=== PATIENT | female | born 1940 | race Caucasian/White ===

== ENCOUNTER 2017-03-17 00:50 | Emergency (ER) | payer MEDICARE, OTHER ==
[2017-03-17 00:51] VITALS: BMI 29.6
[2017-03-17 01:55] VITALS: RESP 18
[2017-03-17 02:44] VITALS: BP 131/52; PULSE 62; TEMP 98; O2SAT 98
--- NOTE | 2017-03-17 02:53 | C.PDOC ---
History Of Present Illness 76 yo female was slicing food with a knife and sustained laceration to left index finger at edge of nailfold. Patient is on coumadin s/p cardiac surgery. Bleeding persists. Time Seen by Provider: 03/17/17 01:19 Chief Complaint (Nursing): Abnormal Skin Integrity Onset/Duration Of Symptoms: Mins Past Medical History Vital Signs: Last Vital Signs Temp 98 F 03/17/17 02:43 Pulse 62 03/17/17 02:43 Resp 18 03/17/17 02:43 BP 131/52 L 03/17/17 02:43 Pulse Ox 98 03/17/17 02:43 - Medical History PMH: CAD, Cardia Arrhythmia (AFIB), HTN, Hyperlipidemia, Hypothyroidism Denies: Depression Other Surgeries: cardiac surgery - [facility] Procedures DX ULTRASOUND-HEART (02/04/98) INJECT/INFUSE ELECTROLYT (09/10/13) INJECT/INFUSE NEC (07/30/12) Family History: States: No Known Family Hx - Social History Hx Tobacco Use: No Hx Alcohol Use: No Hx Substance Use: No - Immunization History Hx Tetanus Toxoid Vaccination: Yes Hx Influenza Vaccination: Yes Hx Pneumococcal Vaccination: Yes Review Of Systems Constitutional: Negative for: Fever Cardiovascular: Negative for: Chest Pain Respiratory: Negative for: Shortness of Breath Skin: Negative for: Rash, Lesions Neurological: Negative for: Weakness, Numbness, Confusion Psych: Negative for: Anxiety Physical Exam - Physical Exam Appears: Well, Non-toxic Chest: Symmetrical Cardiovascular: Rhythm Regular Respiratory: Normal Breath Sounds (small laceration at nailfold left index finger. Persistent bleeding. FROM and NVS intact.) ED Course And Treatment O2 Sat by Pulse Oximetry: 98 Progress Note: extremity elevated and pressure applied. Skin adhesive and steri- strip applied with hemostasis achieved. Disposition - Disposition Disposition: HOME/ ROUTINE Disposition Time: 02:45 Condition: IMPROVED Instructions: Steristrips (ED) Forms: [facility] [place] [employer] (Chinese) - Clinical Impression Clinical Impression: Laceration of finger
== END 2017-03-17 03:00 | disposition home or self-care (01) ==
LOC: C.ER 00:50
DX: S61.211A Laceration without foreign body of left index finger without damage to nail, initial encounter (principal); W26.0XXA Contact with knife, initial encounter; Y93.G1 Activity, food preparation and clean up; Y92.89 Other specified places as the place of occurrence of the external cause